=== PATIENT | male | born 1985 | race Caucasian/White ===

== ENCOUNTER 2017-07-28 20:51 | Emergency (ER) | payer OTHER ==
[~2017-07-28] VITALS: Ht 182.9 cm; Wt 84.1 kg
[2017-07-28] MEDS ORDERED: FLUORESCEIN OPHTH 1 MG STRIP OD ONE (22:15)
[2017-07-28] MEDS ORDERED: TETRACAINE 0.5% OPHTH SOLN 4ML OS ONE (22:30)
[2017-07-28] MEDS ORDERED: ERYTOIN8 OS (22:42)
[2017-07-28] MEDS ORDERED: ERYTHROMYCIN OPHTH OINT OS ONE (22:45)
[2017-07-28 22:51] VITALS: BP 138/68
== END 2017-07-28 22:53 | disposition home or self-care (01) ==
LOC: M ED 20:51
DX: S05.02XA Injury of conjunctiva and corneal abrasion without foreign body, left eye, initial encounter (principal); X58.XXXA Exposure to other specified factors, initial encounter; Y92.89 Other specified places as the place of occurrence of the external cause; Y93.89 Activity, other specified; Y99.8 Other external cause status